=== PATIENT | male | born 2000 | race American Indian/Alaskan Native ===

== ENCOUNTER 2019-12-06 17:54 | Emergency (ER) | payer SELFPAY | END 2019-12-06 19:30 | disposition left against medical advice (07) | LOC: ED 17:54 | DX: Z53.21 Procedure and treatment not carried out due to patient leaving prior to being seen by health care provider (principal) ==

== ENCOUNTER 2020-01-04 14:38 | Emergency (ER) | payer SELFPAY | END 2020-01-04 20:30 | disposition left against medical advice (07) | LOC: ED 14:38 | DX: Z53.21 Procedure and treatment not carried out due to patient leaving prior to being seen by health care provider (principal) ==